=== PATIENT | female | born 1990 | race Two or more races ===

== ENCOUNTER 2023-09-22 14:52 | Emergency (ER) | payer OTHER ==
[~2023-09-22] VITALS: Ht 160 cm; Wt 63.0 kg
[2023-09-22] MEDS ORDERED: IPRATROPIUM BROMIDE 0.5 MG/2.5 ML AMPUL.NEB IH ONE (16:45)
[2023-09-22] MEDS ORDERED: LEVALBUTEROL HCL 1.25 MG/3 ML SOLUTION IH ONE (16:45)
[2023-09-22 17:02] LABS: HEMATOCRIT 36.7 % (36.0-45.00); MEAN CELL VOLUME 86.9 fL (80.00-100.00); MEAN CORPUSCULAR HEMOGLOBIN 28.5 pg (27.00-32.0); MEAN CORPUSCULAR HGB CONC 32.9 g/dl (32.0-36.0); PLATELET COUNT 350 K/uL (150-450); RED BLOOD COUNT 4.22 M/uL (4.00-6.00); RED CELL DISTRIBUTION WIDTH 13.8 % (11.5-14.5)
[2023-09-22] MEDS ORDERED: QC TUSSIN DM L118 ML PO (18:28)
[2023-09-22] MEDS ORDERED: MEDROLPACK PO (18:28)
[2023-09-22] MEDS ORDERED: METHYLPREDNISOLONE SOD SUCC 125 MG VIAL IM ONE (18:30)
[2023-09-22] MEDS ORDERED: GUAIFENESIN 200 MG/10 ML BLIST.PACK PO ONE (18:30)
== END 2023-09-22 18:52 | disposition home or self-care (01) ==
LOC: ER 14:52
PROVIDERS: Nurse Practitioner Family
DX: U07.1 COVID-19 (principal); R05.3 Chronic cough; J45.909 Unspecified asthma, uncomplicated